=== PATIENT | female | born 1950 | race Caucasian/White ===

== ENCOUNTER 2017-11-27 09:51 | Inpatient (IN) | payer MEDICARE, OTHER ==
[2017-11-27] MEDS: ONDANSETRON 4MG/2ML VIAL (J2405) IV ×3 (10:29→20:23)
[2017-11-27] MEDS: NS 1,000 ML IV ×3 (10:29→19:04)
[2017-11-27] MEDS: MORPHINE 4 MG/ML 1ML VIAL/SYRINGE (J2270) IV ×6 (10:30→23:21)
[2017-11-27 10:51] LABS: BASO # 0.1 10^3/uL (0.0-0.2); BASO % 0.4 % (0.0-1.0); EOS # 0.1 10^3/uL (0.0-0.50); EOS % 0.6 % (0.0-3.0); HEMATOCRIT 33.6 % (36.0-47.0); IMMATURE GRANULOCYTE % 0.3 % (0-3.0); LYMPH # 2.9 10^3/uL (1.5-4.5); LYMPH % 20.5 % (24.0-44.0); MEAN CORPUSCULAR HEMOGLOBIN 32.7 pg (27.0-33.0); MEAN CORPUSCULAR HGB CONC 32.7 g/dl (32.0-36.5); MONO % 6.8 % (0.0-5.0); NEUTROPHILS % 71.4 % (36.0-66.0); PLATELET COUNT, AUTOMATED 456 10^3/uL (150-450); RED BLOOD COUNT 3.36 10^6/uL (4.00-5.40); RED CELL DISTRIBUTION WIDTH 13.9 % (11.5-14.5)
[2017-11-27 10:55] LABS: ALBUMIN 3.5 GM/DL (3.2-5.2); ALBUMIN/GLOBULIN RATIO 0.83 (1.00-1.93); ALKALINE PHOSPHATASE 53 U/L (45-117); ALT/SGPT 11 U/L (12-78); ANION GAP 8 MEQ/L (8-16); AST/SGOT 11 U/L (7-37); BILIRUBIN,DIRECT 0.1 MG/DL (0.0-0.2); BILIRUBIN,TOTAL 0.3 MG/DL (0.2-1.0); BLOOD UREA NITROGEN 10 MG/DL (7-18); CALCIUM LEVEL 8.8 MG/DL (8.8-10.2); CARBON DIOXIDE LEVEL 25 MEQ/L (21-32); CHLORIDE LEVEL 104 MEQ/L (98-107); GLOMERULAR FILTRATION RATE > 60.0 (>45); GLUCOSE, FASTING 116 MG/DL (70-100); LIPASE 1000 U/L (73-393); POTASSIUM SERUM 3.2 MEQ/L (3.5-5.1); SODIUM LEVEL 137 MEQ/L (136-145); TOTAL PROTEIN 7.7 GM/DL (6.4-8.2)
[2017-11-27 10:59] LABS: ETHYL ALCOHOL (ETHANOL) < 0.003 % (0.000-0.010)
[2017-11-27] MEDS ORDERED: ISOVUE-370 76% 100ML VIAL (Q9967) As Ordered (11:11)
[2017-11-27 12:35] LABS: INR 0.99; PROTHROMBIN TIME 13.2 SECONDS (12.4-14.5)
[2017-11-27 12:36] LABS: PARTIAL THROMBOPLASTIN TIME 34.2 SECONDS (26.8-37.9)
[2017-11-27] MEDS ORDERED: ACETAMINOPHEN TAB 650MG DOSE (2X325MG) PO (13:30)
[2017-11-27] MEDS: KCL 10MEQ/100ML SWI (KRUN) 10 MEQ in APPROPRIATE DILUENT 1 EA IV ×2 (14:50→15:00)
[2017-11-27 15:50] LABS: MAGNESIUM LEVEL 1.9 MG/DL (1.8-2.4)
[2017-11-27 16:30] LABS: LACTIC ACID SEPSIS PROTOCOL 0.7 MMOL/L (0.4-2.0)
[2017-11-27 16:30] LABS: CK-MB VALUE MASS < 1.0 NG/ML (<3.6); CPK CREATINE PHOSPHOKINASE 82 U/L (26-192); MB/CK RELATIVE INDEX 1.21 (< OR =4); TROPONIN I < 0.02 NG/ML (< 0.10)
[2017-11-27] MEDS ORDERED: IPRATROPIUM 0.5MG/ALBUTEROL 2.5MG INH SOL UD 3ML (DUONEB)(J7620) INH (16:30)
[2017-11-27 16:31] LABS: ETHYL ALCOHOL (ETHANOL) < 0.003 % (0.000-0.010)
[2017-11-27] MEDS: MEROPENEM INJ 1 GM in APPROPRIATE DILUENT 1 EA IV ×2 (18:00→23:21)
[2017-11-27] MEDS: CREON-24 CAPSULE PO (18:01)
[2017-11-27] MEDS: SUCRALFATE 1 GM TAB PO (18:07)
[2017-11-27 18:10] LABS: HEMATOCRIT 32.8 % (36.0-47.0); HEMOGLOBIN 10.6 g/dl (12.0-15.5)
[2017-11-27 18:30] LABS: ANION GAP 5 MEQ/L (8-16); BLOOD UREA NITROGEN 7 MG/DL (7-18); CALCIUM LEVEL 8.2 MG/DL (8.8-10.2); CARBON DIOXIDE LEVEL 27 MEQ/L (21-32); CHLORIDE LEVEL 105 MEQ/L (98-107); CREATININE FOR GFR 0.43 MG/DL (0.55-1.30); GLOMERULAR FILTRATION RATE > 60.0 (>45); GLUCOSE, FASTING 113 MG/DL (70-100); POTASSIUM SERUM 4.2 MEQ/L (3.5-5.1); SODIUM LEVEL 137 MEQ/L (136-145)
[2017-11-27] MEDS: SIMVASTATIN 5 MG TAB PO (20:24)
[2017-11-27] MEDS: CYANOCOBALAMIN 500 MCG TAB PO (20:24)
[2017-11-27] MEDS: VITAMIN D 1,000 INTERNATIONAL UNITS TABLET PO (20:24)
[2017-11-27] MEDS: HYDROXYCHLOROQUINE 200 MG TAB PO (20:24)
[2017-11-27] MEDS: ASCORBIC ACID 500 MG TAB PO (20:24)
[2017-11-27] MEDS: MULTIVITAMINS/MINERALS THERAP 1 TAB PO (20:24)
[2017-11-27] MEDS ORDERED: HEPARIN SOD (PORCINE) 5000 UNITS/ML VIAL SC (22:00)
[2017-11-27 22:48] LABS: HEMATOCRIT 30.9 % (36.0-47.0)
[2017-11-27 23:13] LABS: CPK CREATINE PHOSPHOKINASE 67 U/L (26-192); TROPONIN I < 0.02 NG/ML (< 0.10)
[2017-11-27 23:14] LABS: CK-MB VALUE MASS < 1.0 NG/ML (<3.6); MB/CK RELATIVE INDEX 1.49 (< OR =4)
[2017-11-28] MEDS: NS 1,000 ML IV ×2 (00:45→05:03)
[2017-11-28] MEDS: MORPHINE 4 MG/ML 1ML VIAL/SYRINGE (J2270) IV ×10 (01:48→23:12)
[2017-11-28 02:20] LABS: CK-MB VALUE MASS < 1.0 NG/ML (<3.6); CPK CREATINE PHOSPHOKINASE 57 U/L (26-192); MB/CK RELATIVE INDEX 1.75 (< OR =4); TROPONIN I < 0.02 NG/ML (< 0.10)
[2017-11-28] MEDS: ONDANSETRON 4MG/2ML VIAL (J2405) IV (04:55)
[2017-11-28] MEDS: PANTOPRAZOLE 40MG INJ (PROTONIX) (C9113) IV (05:03)
[2017-11-28 06:01] LABS: BASO # 0.1 10^3/uL (0.0-0.2); BASO % 0.5 % (0.0-1.0); EOS # 0.1 10^3/uL (0.0-0.50); EOS % 1.2 % (0.0-3.0); HEMATOCRIT 31.6 % (36.0-47.0); HEMOGLOBIN 10.3 g/dl (12.0-15.5); IMMATURE GRANULOCYTE % 0.3 % (0-3.0); LYMPH # 3.5 10^3/uL (1.5-4.5); LYMPH % 30.1 % (24.0-44.0); MEAN CORPUSCULAR HEMOGLOBIN 32.3 pg (27.0-33.0); MEAN CORPUSCULAR HGB CONC 32.6 g/dl (32.0-36.5); MEAN CORPUSCULAR VOLUME 99.1 fl (80.0-96.0); MONO % 8.9 % (0.0-5.0); NEUTROPHILS # 6.8 10^3/uL (1.8-7.7); PLATELET COUNT, AUTOMATED 396 10^3/uL (150-450); RED BLOOD COUNT 3.19 10^6/uL (4.00-5.40); RED CELL DISTRIBUTION WIDTH 13.8 % (11.5-14.5); WHITE BLOOD COUNT 11.5 10^3/uL (4.0-10.0)
[2017-11-28 06:25] LABS: ALBUMIN 2.5 GM/DL (3.2-5.2); ALBUMIN/GLOBULIN RATIO 0.71 (1.00-1.93); ALKALINE PHOSPHATASE 41 U/L (45-117); ALT/SGPT 8 U/L (12-78); ANION GAP 7 MEQ/L (8-16); AST/SGOT 7 U/L (7-37); BILIRUBIN,TOTAL 0.4 MG/DL (0.2-1.0); BLOOD UREA NITROGEN 5 MG/DL (7-18); CARBON DIOXIDE LEVEL 24 MEQ/L (21-32); CHLORIDE LEVEL 108 MEQ/L (98-107); CREATININE FOR GFR 0.37 MG/DL (0.55-1.30); GLOMERULAR FILTRATION RATE > 60.0 (>45); GLUCOSE, FASTING 62 MG/DL (70-100); MAGNESIUM LEVEL 1.7 MG/DL (1.8-2.4); POTASSIUM SERUM 3.6 MEQ/L (3.5-5.1); SODIUM LEVEL 139 MEQ/L (136-145)
[2017-11-28] MEDS: D5W/0.9% SODIUM CHLORIDE 1,000 ML IV (06:47)
[2017-11-28] MEDS: D5W/0.45% SODIUM CHLORIDE 1,000 ML IV ×3 (07:19→23:11)
[2017-11-28 07:20] LABS: LIPASE 80 U/L (73-393)
[2017-11-28] MEDS: CREON-24 CAPSULE PO ×3 (08:08→17:15)
[2017-11-28] MEDS: ALPRAZolam 0.25 MG TAB PO (08:08)
[2017-11-28] MEDS: SUCRALFATE 1 GM TAB PO ×3 (08:08→17:15)
[2017-11-28] MEDS: OLANZapine 2.5MG TABLET PO (08:08)
[2017-11-28] MEDS: ASPIRIN 81 MG ENTERIC TAB PO (08:09)
[2017-11-28] MEDS: HYDROXYCHLOROQUINE 200 MG TAB PO ×2 (08:09→20:51)
[2017-11-28] MEDS: MEROPENEM INJ 1 GM in APPROPRIATE DILUENT 1 EA IV ×3 (08:09→23:12)
[2017-11-28] MEDS: FOLIC ACID 1 MG TAB PO (08:09)
[2017-11-28] MEDS: VITAMIN D 1,000 INTERNATIONAL UNITS TABLET PO ×2 (08:09→20:52)
[2017-11-28] MEDS: MAG SULF 1GM/100ML (MAG RUN) 1 GM in APPROPRIATE DILUENT 1 EA IV (09:29)
[2017-11-28 11:14] LABS: BEDSIDE GLUCOSE 223 MG/DL (80-115)
[2017-11-28 12:36] LABS: HEMATOCRIT 29.2 % (36.0-47.0); HEMOGLOBIN 9.3 g/dl (12.0-15.5)
[2017-11-28] MEDS: TIOTROPIUM INHALER/CAPSULE (SPIRIVA) INH (14:16)
[2017-11-28 18:02] LABS: HEMATOCRIT 31.5 % (36.0-47.0); HEMOGLOBIN 10.2 g/dl (12.0-15.5)
[2017-11-28 19:23] LABS: BEDSIDE GLUCOSE 131 MG/DL (80-115)
[2017-11-28] MEDS: SIMVASTATIN 5 MG TAB PO (20:51)
[2017-11-28] MEDS: ASCORBIC ACID 500 MG TAB PO (20:51)
[2017-11-28] MEDS: MULTIVITAMINS/MINERALS THERAP 1 TAB PO (20:51)
[2017-11-28] MEDS: CYANOCOBALAMIN 500 MCG TAB PO (20:52)
[2017-11-28 23:56] LABS: BEDSIDE GLUCOSE 135 MG/DL (80-115)
[2017-11-28 23:58] LABS: HEMATOCRIT 32.5 % (36.0-47.0); HEMOGLOBIN 10.3 g/dl (12.0-15.5)
[2017-11-29] MEDS: MORPHINE 4 MG/ML 1ML VIAL/SYRINGE (J2270) IV ×5 (02:56→12:34)
[2017-11-29] MEDS: D5W/0.45% SODIUM CHLORIDE 1,000 ML IV (02:56)
[2017-11-29 06:13] LABS: BASO # 0.1 10^3/uL (0.0-0.2); BASO % 0.7 % (0.0-1.0); EOS # 0.2 10^3/uL (0.0-0.50); EOS % 2.8 % (0.0-3.0); HEMATOCRIT 31.9 % (36.0-47.0); HEMOGLOBIN 10.1 g/dl (12.0-15.5); IMMATURE GRANULOCYTE % 0.2 % (0-3.0); LYMPH # 2.3 10^3/uL (1.5-4.5); MEAN CORPUSCULAR HEMOGLOBIN 31.5 pg (27.0-33.0); MEAN CORPUSCULAR HGB CONC 31.7 g/dl (32.0-36.5); MEAN CORPUSCULAR VOLUME 99.4 fl (80.0-96.0); MONO # 0.8 10^3/uL (0.0-0.8); MONO % 9.1 % (0.0-5.0); NEUTROPHILS # 4.9 10^3/uL (1.8-7.7); NEUTROPHILS % 59.2 % (36.0-66.0); PLATELET COUNT, AUTOMATED 467 10^3/uL (150-450); RED BLOOD COUNT 3.21 10^6/uL (4.00-5.40); RED CELL DISTRIBUTION WIDTH 13.5 % (11.5-14.5); WHITE BLOOD COUNT 8.3 10^3/uL (4.0-10.0)
[2017-11-29 06:37] LABS: ALBUMIN 2.8 GM/DL (3.2-5.2); ALBUMIN/GLOBULIN RATIO 0.78 (1.00-1.93); ALKALINE PHOSPHATASE 45 U/L (45-117); ALT/SGPT 11 U/L (12-78); ANION GAP 6 MEQ/L (8-16); AST/SGOT 15 U/L (7-37); BILIRUBIN,TOTAL 0.2 MG/DL (0.2-1.0); BLOOD UREA NITROGEN 2 MG/DL (7-18); CALCIUM LEVEL 8.2 MG/DL (8.8-10.2); CARBON DIOXIDE LEVEL 28 MEQ/L (21-32); CHLORIDE LEVEL 108 MEQ/L (98-107); CREATININE FOR GFR 0.35 MG/DL (0.55-1.30); GLOMERULAR FILTRATION RATE > 60.0 (>45); GLUCOSE, FASTING 85 MG/DL (70-100); LIPASE 125 U/L (73-393); POTASSIUM SERUM 3.6 MEQ/L (3.5-5.1); SODIUM LEVEL 142 MEQ/L (136-145); TOTAL PROTEIN 6.4 GM/DL (6.4-8.2)
[2017-11-29] MEDS: TIOTROPIUM INHALER/CAPSULE (SPIRIVA) INH (07:29)
[2017-11-29] MEDS: CREON-24 CAPSULE PO ×2 (08:13→11:56)
[2017-11-29] MEDS: ALPRAZolam 0.25 MG TAB PO (08:13)
[2017-11-29] MEDS: HYDROXYCHLOROQUINE 200 MG TAB PO (08:13)
[2017-11-29] MEDS: SUCRALFATE 1 GM TAB PO ×2 (08:13→11:56)
[2017-11-29] MEDS: FOLIC ACID 1 MG TAB PO (08:13)
[2017-11-29] MEDS: ASPIRIN 81 MG ENTERIC TAB PO (08:13)
[2017-11-29] MEDS: VITAMIN D 1,000 INTERNATIONAL UNITS TABLET PO (08:13)
[2017-11-29] MEDS: OLANZapine 2.5MG TABLET PO (08:14)
[2017-11-29 09:18] LABS: FOLATE > 24.0 NG/ML (>5.4); VITAMIN B12 LEVEL 647 PG/ML (247-911)
[2017-11-29] MEDS: MEROPENEM INJ 1 GM in APPROPRIATE DILUENT 1 EA IV (10:21)
[2017-11-29 13:11] LABS: BEDSIDE GLUCOSE 112 MG/DL (80-115)
[2017-11-29 13:11] LABS: BEDSIDE GLUCOSE 112 MG/DL (80-115)
== END 2017-11-29 13:15 | disposition home or self-care (01) | DRG 438 ==
LOC: M MSPAV 11-28 14:00 → M ED 09:51 → M ED INP 13:57 → M PCU 16:48
DX: K85.90 Acute pancreatitis without necrosis or infection, unspecified (principal); K65.1 Peritoneal abscess; L93.0 Discoid lupus erythematosus; G35 Multiple sclerosis; E78.5 Hyperlipidemia, unspecified; J44.9 Chronic obstructive pulmonary disease, unspecified; F17.210 Nicotine dependence, cigarettes, uncomplicated; D53.9 Nutritional anemia, unspecified; E83.42 Hypomagnesemia; E87.6 Hypokalemia; F41.9 Anxiety disorder, unspecified; Z79.82 Long term (current) use of aspirin; Z88.0 Allergy status to penicillin; Z88.1 Allergy status to other antibiotic agents; Z88.8 Allergy status to other drugs, medicaments and biological substances; Z79.899 Other long term (current) drug therapy

== ENCOUNTER 2018-01-24 18:52 | Inpatient (IN) | payer MEDICARE, OTHER ==
[2018-01-24 19:58] LABS: BASO # 0.1 10^3/uL (0.0-0.2); BASO % 0.7 % (0.0-1.0); EOS # 0.1 10^3/uL (0.0-0.50); EOS % 0.8 % (0.0-3.0); HEMATOCRIT 33.3 % (36.0-47.0); HEMOGLOBIN 11.1 g/dl (12.0-15.5); IMMATURE GRANULOCYTE % 0.5 % (0-3.0); LYMPH # 3.4 10^3/uL (1.5-4.5); LYMPH % 31.7 % (24.0-44.0); MEAN CORPUSCULAR HEMOGLOBIN 30.6 pg (27.0-33.0); MEAN CORPUSCULAR HGB CONC 33.3 g/dl (32.0-36.5); MEAN CORPUSCULAR VOLUME 91.7 fl (80.0-96.0); MONO # 0.6 10^3/uL (0.0-0.8); MONO % 5.9 % (0.0-5.0); NEUTROPHILS # 6.5 10^3/uL (1.8-7.7); NEUTROPHILS % 60.4 % (36.0-66.0); PLATELET COUNT, AUTOMATED 723 10^3/uL (150-450); RED BLOOD COUNT 3.63 10^6/uL (4.00-5.40); RED CELL DISTRIBUTION WIDTH 15.6 % (11.5-14.5); WHITE BLOOD COUNT 10.8 10^3/uL (4.0-10.0)
[2018-01-24 20:05] LABS: ALBUMIN 4.2 GM/DL (3.2-5.2); ALBUMIN/GLOBULIN RATIO 1.08 (1.00-1.93); ALKALINE PHOSPHATASE 56 U/L (45-117); ALT/SGPT 17 U/L (12-78); ANION GAP 13 MEQ/L (8-16); AST/SGOT 25 U/L (7-37); BILIRUBIN,TOTAL 0.3 MG/DL (0.2-1.0); BLOOD UREA NITROGEN 11 MG/DL (7-18); CARBON DIOXIDE LEVEL 25 MEQ/L (21-32); CHLORIDE LEVEL 99 MEQ/L (98-107); CREATININE FOR GFR 0.76 MG/DL (0.55-1.30); GLOMERULAR FILTRATION RATE > 60.0 (>45); GLUCOSE, FASTING 115 MG/DL (70-100); POTASSIUM SERUM 3.6 MEQ/L (3.5-5.1); SODIUM LEVEL 137 MEQ/L (136-145); TOTAL PROTEIN 8.1 GM/DL (6.4-8.2)
[2018-01-24] MEDS: ONDANSETRON 4MG/2ML VIAL (J2405) IV (20:26)
[2018-01-24] MEDS: NS 1,000 ML IV (20:26)
[2018-01-24] MEDS: HYDROmorphone HCL 1 MG/ML SYRINGE (J1170) IV ×2 (20:27→22:22)
[2018-01-24 20:47] LABS: INR 1.05; PROTHROMBIN TIME 13.8 SECONDS (12.4-14.5)
[2018-01-24 21:24] LABS: ALBUMIN/GLOBULIN RATIO 1.14 (1.00-1.93); ALKALINE PHOSPHATASE 55 U/L (45-117); ALT/SGPT 16 U/L (12-78); AMYLASE 202 U/L (25-115); ANION GAP 10 MEQ/L (8-16); AST/SGOT 25 U/L (7-37); BILIRUBIN,DIRECT 0.1 MG/DL (0.0-0.2); BILIRUBIN,TOTAL 0.3 MG/DL (0.2-1.0); BLOOD UREA NITROGEN 11 MG/DL (7-18); CALCIUM LEVEL 8.7 MG/DL (8.8-10.2); CARBON DIOXIDE LEVEL 26 MEQ/L (21-32); CHLORIDE LEVEL 100 MEQ/L (98-107); CREATININE FOR GFR 0.72 MG/DL (0.55-1.30); GLOMERULAR FILTRATION RATE > 60.0 (>45); GLUCOSE, FASTING 122 MG/DL (70-100); LIPASE 680 U/L (73-393); SODIUM LEVEL 136 MEQ/L (136-145); TOTAL PROTEIN 7.5 GM/DL (6.4-8.2)
[2018-01-24 21:25] LABS: KETONE, URINE AUTO RFX 1+ mg/dL (NEGATIVE); LEUKOCYTE ESTERASE UR AUTO RFX NEGATIVE (NEGATIVE); MUCUS, URINE RFX SMALL (NEGATIVE); NITRITE, URINE AUTO RFX NEGATIVE (NEGATIVE); RBC, URINE AUTO RFX 1 /HPF (0-3); SPECIFIC GRAVITY UR AUTO RFX 1.018 (1.002-1.035); SQUAM EPITHELIAL CELL UR AURFX 2 /HPF (0-6); WBC, URINE AUTO RFX 2 /HPF (0-3)
[2018-01-24 21:28] LABS: LACTIC ACID SEPSIS PROTOCOL 2.3 MMOL/L (0.4-2.0)
[2018-01-24] MEDS ORDERED: ISOVUE-370 76% 100ML VIAL (Q9967) As Ordered (21:53)
[2018-01-25] MEDS ORDERED: ACETAMINOPHEN TAB 650MG DOSE (2X325MG) PO (00:30)
[2018-01-25] MEDS: NS 1,000 ML IV ×4 (00:40→19:44)
[2018-01-25] MEDS: MORPHINE 4 MG/ML 1ML VIAL/SYRINGE (J2270) IV (00:48)
[2018-01-25] MEDS ORDERED: ALBUTEROL 90 MCG/ACT 8GM HFA INHALER INH (02:15)
[2018-01-25] MEDS ORDERED: ALPRAZolam 0.25 MG TAB PO (02:15)
[2018-01-25] MEDS: MULTIVITAMINS/MINERALS THERAP 1 TAB PO ×2 (02:45→21:02)
[2018-01-25] MEDS: CYANOCOBALAMIN 500 MCG TAB PO ×2 (02:45→21:02)
[2018-01-25] MEDS: FOLIC ACID 1 MG TAB PO ×2 (02:45→21:02)
[2018-01-25] MEDS: HYDROXYCHLOROQUINE 200 MG TAB PO ×3 (02:45→21:01)
[2018-01-25] MEDS: VITAMIN D 1,000 INTERNATIONAL UNITS TABLET PO ×3 (02:46→21:02)
[2018-01-25] MEDS: ASCORBIC ACID 500 MG TAB PO ×2 (02:46→21:02)
[2018-01-25] MEDS: SIMVASTATIN 5 MG TAB PO ×2 (03:16→21:03)
[2018-01-25] MEDS: PERCOCET 5MG/325MG TAB PO ×5 (03:17→21:04)
[2018-01-25] MEDS: HEPARIN SOD (PORCINE) 5000 UNITS/ML VIAL SC ×3 (06:01→21:03)
[2018-01-25 06:23] LABS: BASO % 0.4 % (0.0-1.0); EOS % 0.4 % (0.0-3.0); HEMATOCRIT 29.8 % (36.0-47.0); HEMOGLOBIN 9.7 g/dl (12.0-15.5); IMMATURE GRANULOCYTE % 0.2 % (0-3.0); LYMPH % 28.5 % (24.0-44.0); MEAN CORPUSCULAR HEMOGLOBIN 30.6 pg (27.0-33.0); MEAN CORPUSCULAR HGB CONC 32.6 g/dl (32.0-36.5); MONO # 0.9 10^3/uL (0.0-0.8); MONO % 8.5 % (0.0-5.0); NEUTROPHILS # 6.6 10^3/uL (1.8-7.7); RED BLOOD COUNT 3.17 10^6/uL (4.00-5.40); RED CELL DISTRIBUTION WIDTH 15.7 % (11.5-14.5); WHITE BLOOD COUNT 10.6 10^3/uL (4.0-10.0)
[2018-01-25 06:29] LABS: PLATELET COUNT, AUTOMATED 568 10^3/uL (150-450)
[2018-01-25 06:46] LABS: ANION GAP 8 MEQ/L (8-16); BLOOD UREA NITROGEN 8 MG/DL (7-18); CALCIUM LEVEL 8.2 MG/DL (8.8-10.2); CARBON DIOXIDE LEVEL 26 MEQ/L (21-32); CHLORIDE LEVEL 105 MEQ/L (98-107); CREATININE FOR GFR 0.53 MG/DL (0.55-1.30); GLOMERULAR FILTRATION RATE > 60.0 (>45); GLUCOSE, FASTING 91 MG/DL (70-100); MAGNESIUM LEVEL 1.9 MG/DL (1.8-2.4); POTASSIUM SERUM 4.2 MEQ/L (3.5-5.1); SODIUM LEVEL 139 MEQ/L (136-145)
[2018-01-25] MEDS: CREON-24 CAPSULE PO ×3 (07:35→17:57)
[2018-01-25] MEDS: ASPIRIN 81 MG ENTERIC TAB PO (07:36)
[2018-01-25] MEDS: OLANZapine 2.5MG TABLET PO (07:36)
[2018-01-25] MEDS: PANTOPRAZOLE 40MG TAB (PROTONIX) PO (07:36)
[2018-01-25] MEDS: SENOKOT S TAB PO ×2 (07:40→21:01)
[2018-01-25] MEDS: TIOTROPIUM INHALER/CAPSULE (SPIRIVA) INH (08:15)
[2018-01-25] MEDS ORDERED: MORPHINE 4 MG/ML 1ML VIAL/SYRINGE (J2270) IV (12:00)
[2018-01-25] MEDS: ONDANSETRON 4MG/2ML VIAL (J2405) IV (14:49)
[2018-01-26] MEDS: PERCOCET 5MG/325MG TAB PO ×3 (01:49→10:39)
[2018-01-26] MEDS: NS 1,000 ML IV (06:16)
[2018-01-26] MEDS: HEPARIN SOD (PORCINE) 5000 UNITS/ML VIAL SC (06:17)
[2018-01-26 06:29] LABS: BASO # 0.1 10^3/uL (0.0-0.2); BASO % 1.1 % (0.0-1.0); EOS # 0.2 10^3/uL (0.0-0.50); EOS % 3.8 % (0.0-3.0); HEMATOCRIT 31.4 % (36.0-47.0); HEMOGLOBIN 9.9 g/dl (12.0-15.5); IMMATURE GRANULOCYTE % 0.2 % (0-3.0); LYMPH # 2.9 10^3/uL (1.5-4.5); LYMPH % 45.3 % (24.0-44.0); MEAN CORPUSCULAR HEMOGLOBIN 30.4 pg (27.0-33.0); MEAN CORPUSCULAR HGB CONC 31.5 g/dl (32.0-36.5); MEAN CORPUSCULAR VOLUME 96.3 fl (80.0-96.0); MONO # 0.6 10^3/uL (0.0-0.8); MONO % 9.2 % (0.0-5.0); NEUTROPHILS # 2.6 10^3/uL (1.8-7.7); NEUTROPHILS % 40.4 % (36.0-66.0); PLATELET COUNT, AUTOMATED 529 10^3/uL (150-450); RED BLOOD COUNT 3.26 10^6/uL (4.00-5.40); RED CELL DISTRIBUTION WIDTH 15.6 % (11.5-14.5); WHITE BLOOD COUNT 6.4 10^3/uL (4.0-10.0)
[2018-01-26 06:51] LABS: ANION GAP 6 MEQ/L (8-16); BLOOD UREA NITROGEN 4 MG/DL (7-18); CALCIUM LEVEL 8.3 MG/DL (8.8-10.2); CARBON DIOXIDE LEVEL 28 MEQ/L (21-32); CHLORIDE LEVEL 108 MEQ/L (98-107); CREATININE FOR GFR 0.48 MG/DL (0.55-1.30); GLOMERULAR FILTRATION RATE > 60.0 (>45); GLUCOSE, FASTING 100 MG/DL (70-100); POTASSIUM SERUM 3.8 MEQ/L (3.5-5.1); SODIUM LEVEL 142 MEQ/L (136-145)
[2018-01-26] MEDS: PANTOPRAZOLE 40MG TAB (PROTONIX) PO (08:56)
[2018-01-26] MEDS: VITAMIN D 1,000 INTERNATIONAL UNITS TABLET PO (08:57)
[2018-01-26] MEDS: HYDROXYCHLOROQUINE 200 MG TAB PO (08:57)
[2018-01-26] MEDS: ASPIRIN 81 MG ENTERIC TAB PO (08:57)
[2018-01-26] MEDS: CREON-24 CAPSULE PO ×2 (08:57→11:56)
[2018-01-26] MEDS: OLANZapine 2.5MG TABLET PO (08:57)
[2018-01-26] MEDS: SENOKOT S TAB PO (09:00)
[2018-01-26] MEDS: TIOTROPIUM INHALER/CAPSULE (SPIRIVA) INH (09:08)
== END 2018-01-26 13:18 | disposition home or self-care (01) | DRG 439 ==
LOC: M ED INP 01-25 00:22 → M MSPAV 01-25 01:40 → M ED 18:52
DX: K85.20 Alcohol induced acute pancreatitis without necrosis or infection (principal); Z68.1 Body mass index [BMI] 19.9 or less, adult; K86.0 Alcohol-induced chronic pancreatitis; R63.6 Underweight; J44.9 Chronic obstructive pulmonary disease, unspecified; G35 Multiple sclerosis; F10.10 Alcohol abuse, uncomplicated; Z79.82 Long term (current) use of aspirin; Z79.899 Other long term (current) drug therapy; Z88.0 Allergy status to penicillin; Z88.1 Allergy status to other antibiotic agents; Z90.49 Acquired absence of other specified parts of digestive tract; Z98.51 Tubal ligation status; Z87.891 Personal history of nicotine dependence